=== PATIENT | female | born 1960 | race Two or more races ===

== ENCOUNTER 2017-11-21 10:57 | Day surgery (SDC) | payer BC ==
[2017-11-21] MEDS ORDERED: MIDAZOLAM 1 MG/ML 2 ML INJ ×2 (13:12)
[2017-11-21] MEDS ORDERED: FENTAnyl 50 MCG/ML VIAL (13:12)
== END 2017-11-21 14:40 | disposition home or self-care (01) ==
LOC: GIL 10:57
DX: Z12.11 Encounter for screening for malignant neoplasm of colon (principal)
CPT/HCPCS: 45378; 84703